=== PATIENT | female | born 1965 | race Caucasian/White ===

== ENCOUNTER → 2020-11-18 | Outpatient (CLI) | payer OTHER | LOC: CAT 15:07 | PROVIDERS: ATTEND Internal Medicine Cardiovascular Disease | DX: Z13.6 Encounter for screening for cardiovascular disorders (principal); E78.00 Pure hypercholesterolemia, unspecified; I25.10 Atherosclerotic heart disease of native coronary artery without angina pectoris ==

== ENCOUNTER → 2021-01-18 | Outpatient (CLI) | payer BC | LOC: SJCVCIMAG 12-14 08:27 | PROVIDERS: ATTEND Internal Medicine Cardiovascular Disease | DX: I08.2 Rheumatic disorders of both aortic and tricuspid valves (principal); I10 Essential (primary) hypertension; I48.91 Unspecified atrial fibrillation; E66.9 Obesity, unspecified; E78.5 Hyperlipidemia, unspecified; R53.83 Other fatigue; K21.9 Gastro-esophageal reflux disease without esophagitis; E83.51 Hypocalcemia; Z79.899 Other long term (current) drug therapy; Z88.5 Allergy status to narcotic agent; Z88.8 Allergy status to other drugs, medicaments and biological substances; Z87.891 Personal history of nicotine dependence; Z72.89 Other problems related to lifestyle ==

== ENCOUNTER 2021-04-19 06:29 | Observation (INO) | payer BC ==
[~2021-04-19] VITALS: Ht 162.6 cm; Wt 122.1 kg
[2021-04-19] VITALS (9 sets, daily range): BP systolic 132–180; BP diastolic 87–107
[2021-04-19 07:33] LABS: ABSOLUTE NEUTROPHILS 4.2 thou/uL (1.4-8.2); EOSINOPHILS 3.6 % (0.0-3.0); HEMATOCRIT 40.3 % (37.0-47.0); HEMOGLOBIN 13.1 gm/dL (12.0-15.0); LYMPHOCYTES 24.2 % (24.0-44.0); MCH 30.9 pg (26.0-34.0); MCHC 32.5 g/dL (28.0-37.0); MONOCYTES 8.8 % (1.0-8.0); PLATELET COUNT 228 thou/uL (150-400); POLYS 62.4 % (36.0-66.0); RBC 4.24 mil/uL (4.20-5.00); RDW 13.6 % (10.5-14.5); WBC 6.7 thou/uL (4.0-11.0)
[2021-04-19] MEDS ORDERED: B COMPLEX1 EACH PO (07:46)
[2021-04-19] MEDS ORDERED: CALCIUM500 MG PO (07:46)
[2021-04-19 07:47] LABS: CALCIUM 8.4 mg/dL (8.5-10.1); CREATININE 0.9 mg/dL (0.6-1.0); POTASSIUM 3.9 mmol/L (3.5-5.1)
[2021-04-19] MEDS ORDERED: CARVEDILOL12.5 MG PO (07:47)
[2021-04-19] MEDS ORDERED: NAPROSYN500 MG PO (07:49)
[2021-04-19] MEDS ORDERED: TORSEMIDE20 MG PO (07:50)
[2021-04-19] MEDS ORDERED: KLOR-CON M2020 MEQ PO (07:50)
[2021-04-19] MEDS ORDERED: XARELTO20 MG PO (07:51)
[2021-04-19 07:53] LABS: ALBUMIN 3.5 g/dL (3.4-5.0); TOTAL BILIRUBIN 0.5 mg/dL (0.2-1.0)
[2021-04-19 08:09] LABS: INR 0.97; PROTIME 10.6 Seconds (10.5-12.1)
--- NOTE | 2021-04-19 13:26 | 2DMMODE ---
[facility] [place] [address] 2 D/M-MODE ECHOCARDIOGRAM Name: KRYSTLE DOTY Room #: REG TD Sy#: [id number] Admission: 04/19/21 Attend Phys: Anton Culver MD Discharge: Date of : 65 Report #: [id number] THIS REPORT FOR: cc: Awilda Penn MD, Reem MD Lundgren,John Olivares MD [facility] ~ APPROVED REPORT Study performed: 04/19/2021 12:48:15 EXAM: Limited 2D, Doppler, and color-flow Echocardiogram Patient Location: PACU Status: routine BSA: 2.19 HR: 85 bpm BP: 132/107 mmHg Rhythm: NSR Other Information Study Quality: Adequate Indications Limited echo for chest pain s/p Afib ablation. Rule out pericardial effusion. Aortic Valve AoV Peak Roque.: 1.28 m/s AO Peak Gr.: 6.54 mmHg Tricuspid Valve TR Peak Roque.: 2.84 m/s RAP Estimate: 5.00 mmHg TR Peak Gr.: 32.31 mmHg PA Pressure: 37.00 mmHg Left Ventricle The left ventricle is normal size. There is normal LV segmental wall motion. Mild concentric left ventricular hypertrophy. Left ventricular systolic function is normal. LVEF is 65%. Right Ventricle The right ventricle is normal size. The right ventricular systolic function is normal. [facility] [address] [place] [address] 2 D/M-MODE ECHOCARDIOGRAM Name: KRYSTLE DOTY Room #: REG CL Mayda.#: [id number] Admission: 04/19/21 Attend Phys: Anton Culver Discharge: Date of : 65 Report #: [id number] Left atrium appears dilated. The right atrium size is normal. Aortic Valve The aortic valve is normal in structure. No aortic regurgitation is present. There is no aortic valvular stenosis. Mitral Valve The mitral valve is normal in structure. There is no mitral valve regurgitation noted. No evidence of mitral valve stenosis. Tricuspid Valve The tricuspid valve is normal in structure. Mild tricuspid regurgitation. Estimated PAP is 37mmHg. Great Vessels IVC is normal in size and collapses >50% with inspiration. Pericardium Small pericardial effusion. <Conclusion> Limited/Abbreviated study Left ventricular systolic function is normal. There is normal LV segmental wall motion. LVEF is 65%. Mild concentric left ventricular hypertrophy. Small pericardial effusion. <ELECTRONICALLY SIGNED> By: John Tapia MD, [facility] 04/19/21 1325 24 24 John Tapia MD, FACC /INF
--- NOTE | 2021-04-19 19:23 | NUR ---
RECEIVED PT FROM EDITORIAL SPECIALIST AT APPROXIMATELY 1300. PT HAS A RIGHT GROIN SITE AND A LEFT WRIST SITE BOTH HAVE GAUZE WITH TRANSPARENT DRESSINGS, BOTH C/D/I. EDITORIAL SPECIALIST STATED PT HAS SOME SUB STERNAL CHEST PRESSURE THAT SHE RECEIVED TORADOL. PT RATING HER PRESSURE A 3/10 UPON ARRIVAL. PT DENIES N/V, SOA.
[2021-04-20] VITALS (7 sets, daily range): BP systolic 134–152; BP diastolic 69–93
--- NOTE | 2021-04-20 06:36 | NUR ---
C/O chest tightness at shift change which she stated she had earlier part of the shift but a little bit more. She stated it does not hurt but just a tight feeling. No c/o shortness of breath. VSS and SR per tele. Dr. Goncalves notified. Later on pt. stated it went away. Also c/o mild rash on left hand and denies itchiness. Rashes are not very visible but pt. stated she could feel it. Pt. encouraged to call if it gets worst and she stated it is not bad. Right groin soft, no hematoma or bleeding and with dressing CDI. Up ad bud in roomwith steady gait. Voiding well per bathroom.
--- NOTE | 2021-04-20 08:44 | EKG ---
[address] [place] [address] ELECTROCARDIOGRAM REPORT Name: KRYSTLE DOTY Room #: 213-P [facility]#: [id number] Admission: 04/19/21 Attend Phys: Anton Culver MD Discharge: Date of : 65 Report #: [id number] [facility] Test Date: 2021-04-19 Test Time: 12:38:17 Pat Name: KRYSTLE DOTY Department: Room: [facility] Gender: F [employer] Paralegal: FUENTES : 1965 Requested By: Criselda King Order Number: [id number] MD: John Tapia Measurements Intervals [place] Rate: 84 P: 34 SD: 40 QRS: 0 QRSD: 114 T: 16 QT: 414 QTc: 490 Interpretive Statements Sinus rhythm Short SD interval Borderline prolonged QT interval Artifact in lead(s) I,II,aVR,aVL,aVF No previous ECG available for comparison Electronically Signed On 04-20-2021 8:44:24 DATA MANAGEMENT MANAGER by John Tapia [email or web address] <ELECTRONICALLY SIGNED> By: John Tapia MD, [facility] 04/20/21 0844 1238 1238 John Tapia MD, [facility] /EPI
--- NOTE | 2021-04-20 10:00 | 2DMMODE ---
[address] [address] 2 D/M-MODE ECHOCARDIOGRAM Name: KRYSTLE DOTY Room #: 213-P [facility] M.R.#: [id number] Admission: 04/19/21 Attend Phys: Anton Culver MD Discharge: Date of : 65 Report #: [id number] THIS REPORT FOR: cc: Awilda Penn MD, Reem MD Park, Jin S. MD ~ APPROVED REPORT Study performed: 04/20/2021 08:56:31 EXAM: Limited 2D Echocardiogram Patient Location: Bedside Room #: 213 Status: routine BSA: 2.22 HR: 90 bpm BP: 152/93 mmHg Rhythm: NSR Other Information Study Quality: Adequate Technically limited study due to morbid obesity. Indications Limited follow up for small pericardial effusion. S/P ablation 04/19/2021 Left Ventricle The left ventricle is normal size. Left ventricular systolic function is normal. LVEF is 65%. Right Ventricle The right ventricle is normal size. The right ventricular systolic function is normal. [facility] The left atrium size is normal. The right atrium size is normal. Aortic Valve The aortic valve is normal in structure. Mitral Valve The mitral valve is normal in structure. [address] [address] 2 D/M-MODE ECHOCARDIOGRAM Name: KRYSTLE DOTY Room #: 213-P [facility] M.R.#: [id number] Admission: 04/19/21 Attend Phys: Anton Ariaschonnlatrell Discharge: Date of : 65 Report #: [id number] Tricuspid Valve The tricuspid valve is normal in structure. Pulmonic Valve The pulmonary valve is normal in structure. Great Vessels IVC is not well visualized. Pericardium Small posterior pericardial effusion. (Unchanged from echo done 04/19/21) <Conclusion> The left ventricle is normal size. Left ventricular systolic function is normal. The right ventricle is normal size. The left atrium size is normal. The aortic valve is normal in structure. The mitral valve is normal in structure. Small posterior pericardial effusion. (Unchanged from echo done 04/19/21) <ELECTRONICALLY SIGNED> By: Rhett Jones MD 04/20/21 1000 1000 1000 Rhett Jones MD /INF
[2021-04-20] MEDS ORDERED: NORVASC10 MG PO (10:56)
--- NOTE | 2021-04-20 12:14 | NUR ---
TOOK OVER CARE OF THIS PATIENT AT 0700. PT RESTING IN BED AT THIS TIME. PT AXOX4, VERY PLEASANT. PT DENIES ANY NEEDS AT THIS TIME. PT ON ROOM AIR; DENIES SOA. PT DENIES CHEST PAIN. ASSESSMENTS CHARTED. FALL PRECAUTIONS IN PLACE AND CALL LIGHT WITHIN REACH. WILL CONTINUE TO MONITOR.
--- NOTE | 2021-04-20 14:40 | NUR ---
DR. MEDEL PROVIDED NEW PRESCRIPTION FOR PATIENT BUT THIS PRES[facility] WAS S[facility] TO [facility] [place], HOWEVER, PATIENT WANTED THE PRESCRIPTION SENT TO A [facility]OS[facility]. [facility] [address] AND PRESCRIPTION SHOULD BE READY FOR PATIENT WHEN SHE ARRIVES. SPOKE TO PHARMACIST WHO CONFIRMED THIS. DISCHARGE EDUCATION GIVEN TO PATIENT. DENIES ANY QUESTIONS OR CONCERNS.
--- NOTE | 2021-04-28 12:48 | P ---
[facility] [place] [address] PROCEDURE REPORT Name: KRYSTLE DOTY Room #: 213-P [facility] P[facility]r Sy#: [id number] Admission: 04/19/21 Attend Phys: Anton Culver MD Discharge: 04/20/21 Date of : 65 Report #: [id number] THIS REPORT FOR: cc: Awilda Penn MD, Reem MD Couchonnal,Anton Fonseca MD ~ DATE OF SERVICE: 04/27/2021 PREOPERATIVE DIAGNOSIS: Atrial fibrillation. POSTOPERATIVE DIAGNOSIS: Atrial fibrillation. PROCEDURES PERFORMED: 1. Atrial fibrillation ablation, CPT code 57408. 2. 3D mapping, CPT code 53112. 3. Intracardiac echo, CPT code 16061. HISTORY: The patient is a 55-year-old female with recurrent symptomatic AFib, here for ablation. ANESTHESIA: The patient underwent general anesthesia with no anesthesia-related complications. DESCRIPTION OF PROCEDURE: The patient underwent informed consent. We discussed the details of the procedure including the risks, which include but not limited to bleeding, vascular damage, stroke, OK, cardiac perforation. She understood these risks and is willing to proceed. The patient was brought to the EP laboratory in fasting and sedated state, prepped and draped in a standard fashion. At baseline, she was noted to be in sinus rhythm. I obtained access to the right femoral vein x 3, placing an 8, 9 and 7-Eritrean short sheath using modified Seldinger technique. Under fluoroscopy, I placed a Decapolar catheter in the coronary sinus with ease and an ICE catheter in the right atrium. The patient was systemically heparinized. Transseptal was performed using SL1 sheath and a Clarkrange needle, which was straightforward, exchanged for the cryosheath and placed the Lasso catheter in the left atrium. A 3D geometry of the left atrium was created using the Lasso catheter. The patient had evidence of a left common and 2 right-sided veins. I then started isolating the veins. The left common had an upper and lower branch. I performed two 4-minute freezes in the superior branch with good temperatures, but there was still evidence of connection. I then performed two 4-minute freezes in the inferior branch of the common ostium. This resulted in isolation of the common ostium at 49 seconds. I then turned my attention to the right superior pulmonary vein. This underwent a 3-minute freeze isolating at 33 seconds. The right inferior pulmonary vein underwent a 4-minute freeze isolating at 60 seconds. Next, repeat 3D voltage map and geometry of the left [address] [address] PROCEDURE REPORT Name: KRYSTLE DOTY Room #: [facility] Piotr Sy#: [id number] Admission: 04/19/21 Attend Phys: Anton Culver MD Discharge: 04/20/21 Date of : 65 Report #: [id number] atrium was created, which now shows that all pulmonary veins were isolated. The rest of the left atrium looked to be within normal limits and the procedure was therefore concluded. There is no evidence of pericardial effusion. The patient received systemic protamine and once ACT was in acceptable range, catheters and sheaths were pulled. Hemostasis obtained. CONCLUSION: Successful AFib ablation with isolation of the pulmonary veins. <ELECTRONICALLY SIGNED> By: Anton Culver MD 04/28/21 1248 1205 1787 Anton Culver MD /nt
== END 2021-04-20 14:47 | disposition home or self-care (01) ==
LOC: CATH 06:29 → 2N 13:35 → CATH 13:36 → 2N 13:36
PROVIDERS: ADMIT Internal Medicine Cardiovascular Disease; ATTEND Internal Medicine Cardiovascular Disease
DX: I48.0 Paroxysmal atrial fibrillation (principal); Z20.822 Contact with and (suspected) exposure to COVID-19; E78.5 Hyperlipidemia, unspecified; I10 Essential (primary) hypertension; Z88.8 Allergy status to other drugs, medicaments and biological substances; Z88.5 Allergy status to narcotic agent; Z91.040 Latex allergy status
CPT/HCPCS: 62110; 62900; 65020; 65040; 70005